=== PATIENT | female | born 1990 | race Caucasian/White ===

== ENCOUNTER → 2024-11-09 | Outpatient (CLI) | payer BC, SELFPAY ==
[2024-11-10 10:39] LABS: COVID-19 Confirmatory PCR Negative (Neg)
== END | disposition home or self-care (01) ==
LOC: COPL 15:20
PROVIDERS: PCP Registered Nurse; Referring Provider Registered Nurse; Visit Provider Registered Nurse
DX: Z01.818 Encounter for other preprocedural examination (principal)
CPT/HCPCS: 87635